=== PATIENT | female | born 1990 | race African-American/Black ===

== ENCOUNTER 2020-09-30 13:14 | Emergency (ER) | payer OTHER ==
[~2020-09-30] VITALS: Ht 162.6 cm; Wt 102.1 kg
[2020-09-30] MEDS ORDERED: DIAZEPAM 10 MG10 M1 PO (13:34)
[2020-09-30] MEDS ORDERED: TOPROL XL100 MG PO (13:34)
[2020-09-30] MEDS ORDERED: HYDROCHLOROTHIA25 M2 PO (13:34)
[2020-09-30] MEDS ORDERED: FUROSEMIDE 20 M20 MG PO (13:35)
[2020-09-30] MEDS ORDERED: XANAX XR2 MG PO (13:35)
[2020-09-30] MEDS ORDERED: GEODON40 MG PO (13:35)
[2020-09-30] MEDS ORDERED: PROZAC40 MG PO (13:35)
[2020-09-30] MEDS ORDERED: VYVANSE50 MG PO (13:37)
[2020-09-30] MEDS ORDERED: KEFLEX500 M1 PO (13:41)
[2020-09-30] MEDS ORDERED: APAP W/CODEINE1 TA2 PO (13:41)
[2020-09-30] MEDS ORDERED: LIDOCAINE VISC100 ML TOP (13:41)
[2020-09-30 13:52] VITALS: BP 108/81
== END 2020-09-30 13:53 | disposition home or self-care (01) ==
LOC: M.ERS 13:14
DX: M79.675 Pain in left toe(s) (principal); I10 Essential (primary) hypertension; Z88.5 Allergy status to narcotic agent; Z88.8 Allergy status to other drugs, medicaments and biological substances

== ENCOUNTER 2020-11-20 17:30 | Emergency (ER) | payer OTHER, MEDICAID ==
[~2020-11-20] VITALS: Ht 162.6 cm; Wt 99.8 kg
[~2020-11-20 17:30] MED LIST: APAP W/CODEINE1 TA2 PO; DIAZEPAM 10 MG10 M1 PO; FUROSEMIDE 20 M20 MG PO; GEODON40 MG PO; HYDROCHLOROTHIA25 M2 PO; KEFLEX500 M1 PO; LIDOCAINE VISC100 ML TOP; PROZAC40 MG PO; TOPROL XL100 MG PO; VYVANSE50 MG PO; XANAX XR2 MG PO
[2020-11-20] MEDS ORDERED: VALSARTAN-HCTZ1 EAC4 PO (17:40)
[2020-11-20 18:13] LABS: ABSOLUTE BASOPHILS 0.1 thou/uL (0.0-0.2); ABSOLUTE EOSINOPHILS 0.3 thou/uL (0.0-0.7); ABSOLUTE MONOCYTES 0.7 thou/uL (0.0-1.2); BASOPHILS 1.2 %; HEMATOCRIT 41.9 % (37.0-47.0); HEMOGLOBIN 14.1 gm/dL (12.0-15.0); LYMPHOCYTES 36.7 %; MCHC 33.7 g/dL (28.0-37.0); MCV 89.1 fL (80.0-100.0); MONOCYTES 8.5 %; MPV 7.3 fl. (7.2-11.1); NUCLEATED RBCS 0 /100WBC; PLATELET COUNT* 250 thou/uL (150-400); POLYS 49.6 %; RDW-CV 13.5 % (10.5-14.5); WBC 8.2 thou/uL (4.0-11.0)
[2020-11-20 18:19] LABS: CALCIUM 9.2 mg/dL (8.5-10.1)
[2020-11-20 18:24] LABS: ALBUMIN 3.2 g/dL (3.4-5.0); TOTAL BILIRUBIN 0.3 mg/dL (<0.1-1.0); TOTAL PROTEIN 6.2 g/dL (6.4-8.2)
[2020-11-20 18:30] LABS: POTASSIUM 2.4 mmol/L (3.5-5.1)
[2020-11-20] MEDS ORDERED: BENTYL 20 MG TA20 M1 PO (20:10)
[2020-11-20] MEDS ORDERED: PHENERGAN 25 MG25 M1 PO (20:10)
[2020-11-20] MEDS ORDERED: AUGMENTIN 875-1 EACH PO (20:10)
[2020-11-20] MEDS ORDERED: APAP W/CODEINE1 TA2 PO (20:17)
[2020-11-20 20:30] VITALS: BP 105/58
== END 2020-11-20 20:31 | disposition home or self-care (01) ==
LOC: M.ERS 17:30
PROVIDERS: Nurse Practitioner Family
DX: K52.9 Noninfective gastroenteritis and colitis, unspecified (principal); N72 Inflammatory disease of cervix uteri; I10 Essential (primary) hypertension; F17.210 Nicotine dependence, cigarettes, uncomplicated; Z88.5 Allergy status to narcotic agent; Z88.8 Allergy status to other drugs, medicaments and biological substances

== ENCOUNTER 2020-12-23 15:52 | Emergency (ER) | payer OTHER, MEDICAID ==
[~2020-12-23] VITALS: Ht 162.6 cm; Wt 99.8 kg
[~2020-12-23 15:52] MED LIST changes: +AUGMENTIN 875-1 EACH PO; +BENTYL 20 MG TA20 M1 PO; +PHENERGAN 25 MG25 M1 PO; +VALSARTAN-HCTZ1 EAC4 PO
[2020-12-23 16:03] VITALS: BP 143/88
[2020-12-23 16:24] LABS: URINE BILIRUBIN NEGATIVE (Negative); URINE BLOOD 2+ (Negative); URINE CLARITY CLEAR; URINE COLOR YELLOW; URINE GLUCOSE-RANDOM NEGATIVE (Negative); URINE KETONES NEGATIVE (Negative); URINE LEUKOCYTES-REFLEX NEGATIVE (Negative); URINE NITRITE-REFLEX NEGATIVE (Negative); URINE PROTEIN NEGATIVE (Negative); URINE SPECIFIC GRAVITY >= 1.030 (1.005-1.030); URINE UROBILINOGEN 0.2 E.U./dl (0.2-1.0)
[2020-12-23] MEDS ORDERED: ZOFRAN ODT4 MG SUBLING (16:30)
[2020-12-23] MEDS ORDERED: PERCOCET 5-3251 EACH PO (16:30)
[2020-12-23] MEDS ORDERED: CIPROFLOXACIN500 M1 PO (16:30)
[2020-12-23 17:00] LABS: SQUAMOUS >10 Many /LPF (0-3); URINE WBC-REFLEX 0-5 Rare /HPF (0-5)
[2020-12-23 17:01] LABS: CASTS None Seen /LPF (None Seen); CRYSTALS None Seen /LPF (None Seen); MUCUS >6 Heavy strn/LPF (None Seen); URINE RBC 0-2 Rare /HPF (0-2)
== END 2020-12-23 17:03 | disposition home or self-care (01) ==
LOC: M.ERS 15:52
PROVIDERS: Family Medicine
DX: N39.0 Urinary tract infection, site not specified (principal); I10 Essential (primary) hypertension; Z79.899 Other long term (current) drug therapy; Z88.5 Allergy status to narcotic agent; Z88.8 Allergy status to other drugs, medicaments and biological substances

== ENCOUNTER → 2021-02-15 | Outpatient (CLI) | payer OTHER, MEDICAID ==
[~2021-02-15] MED LIST changes: +CIPROFLOXACIN500 M1 PO; +NYSTATIN 100,0015 G1 TOP; +PERCOCET 5-3251 EACH PO; +ZOFRAN ODT4 MG SUBLING
--- NOTE | 2021-02-16 10:31 | EKG ---
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
== END ==
LOC: M.ULTRA 14:48
DX: Z01.818 Encounter for other preprocedural examination (principal); I49.9 Cardiac arrhythmia, unspecified

== ENCOUNTER 2021-03-04 14:06 | Emergency (ER) | payer OTHER, MEDICAID ==
[~2021-03-04] VITALS: Ht 162.6 cm; Wt 97.5 kg
[~2021-03-04 14:06] MED LIST changes: -NYSTATIN 100,0015 G1 TOP
[2021-03-04 15:17] LABS: ABSOLUTE BASOPHILS 0.1 thou/uL (0.0-0.2); ABSOLUTE EOSINOPHILS 0.1 thou/uL (0.0-0.7); ABSOLUTE LYMPHOCYTES 2.2 thou/uL (0.8-5.3); ABSOLUTE MONOCYTES 0.5 thou/uL (0.0-1.2); ABSOLUTE NEUTROPHILS 4.3 thou/uL (1.6-8.1); BASOPHILS 1.4 %; HEMATOCRIT 42.5 % (37.0-47.0); HEMOGLOBIN 14.3 gm/dL (12.0-15.0); LYMPHOCYTES 30.6 %; MCHC 33.7 g/dL (28.0-37.0); MCV 88.9 fL (80.0-100.0); MONOCYTES 7.3 %; MPV 7.7 fl. (7.2-11.1); NUCLEATED RBCS 0 /100WBC; PLATELET COUNT* 227 thou/uL (150-400); POLYS 59.7 %; RBC 4.78 mil/uL (4.20-5.00); RDW-CV 14.3 % (10.5-14.5); WBC 7.3 thou/uL (4.0-11.0)
[2021-03-04 15:22] LABS: CALCIUM 9.2 mg/dL (8.5-10.1)
[2021-03-04 15:27] LABS: TOTAL BILIRUBIN 0.6 mg/dL (<0.1-1.0); TOTAL PROTEIN 7.7 g/dL (6.4-8.2)
[2021-03-04] MEDS ORDERED: NYSTATIN 100,0015 G1 TOP (15:39)
[2021-03-04 16:21] LABS: URINE BILIRUBIN NEGATIVE (Negative); URINE BLOOD 1+ (Negative); URINE CLARITY CLEAR; URINE COLOR YELLOW; URINE GLUCOSE-RANDOM NEGATIVE (Negative); URINE KETONES NEGATIVE (Negative); URINE LEUKOCYTES-REFLEX TRACE (Negative); URINE NITRITE-REFLEX NEGATIVE (Negative); URINE PROTEIN NEGATIVE (Negative); URINE SPECIFIC GRAVITY 1.015 (1.005-1.030); URINE UROBILINOGEN 0.2 E.U./dl (0.2-1.0)
[2021-03-04 16:27] LABS: BACTERIA-REFLEX >30 Many /HPF (None Seen); CASTS None Seen /LPF (None Seen); CRYSTALS None Seen /LPF (None Seen); MUCUS 0-3 Light strn/LPF (None Seen); SQUAMOUS >10 Many /LPF (0-3); URINE RBC 0-2 Rare /HPF (0-2); URINE WBC-REFLEX 0-5 Rare /HPF (0-5)
[2021-03-04] MEDS ORDERED: APAP W/CODEINE1 TA2 PO ×2 (16:40→16:42)
[2021-03-04] MEDS ORDERED: PHENERGAN 25 MG25 M1 PO ×2 (16:40→16:42)
[2021-03-04 16:59] VITALS: BP 147/74
--- NOTE | 2021-03-04 17:14 | EKG ---
[place] [address] ELECTROCARDIOGRAM REPORT Name: CAT TARIQ Room: 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1990 Requested By: Marcela Toledo Order Number: [id number] MD: Donny Judge Measurements Intervals [place] Rate: 70 P: -10 PA: 132 QRS: 27 QRSD: 92 T: -11 QT: 444 QTc: 480 Interpretive Statements Sinus rhythm Low voltage, precordial leads Anteroseptal infarct, old Nonspecific ST segment and T wave changes, consider ischemia compared to ECG 02/15/2021 15:50:24 Low QRS voltage now present Myocardial infarct finding now present Electronically Signed On 03-04-2021 17:14:18 CDT by Donny Judge [email or web address] <ELECTRONICALLY SIGNED> By: Donny Judge MD, [facility] 03/04/21 1714 1513 1513 Donny Judge MD, [facility] /EPI
== END 2021-03-04 17:00 | disposition home or self-care (01) ==
LOC: M.ERS 14:06
PROVIDERS: Nurse Practitioner Family
DX: B37.2 Candidiasis of skin and nail (principal); K52.9 Noninfective gastroenteritis and colitis, unspecified; E87.6 Hypokalemia; I10 Essential (primary) hypertension; Z88.5 Allergy status to narcotic agent; Z88.8 Allergy status to other drugs, medicaments and biological substances

== ENCOUNTER → 2021-03-05 | Outpatient (CLI) | payer OTHER, MEDICAID ==
[~2021-03-05] MED LIST changes: +NYSTATIN 100,0015 G1 TOP
[2021-03-05 16:29] LABS: URINE BILIRUBIN NEGATIVE (Negative); URINE BLOOD TRACE (Negative); URINE CLARITY SL CLOUDY; URINE COLOR YELLOW; URINE GLUCOSE-RANDOM NEGATIVE (Negative); URINE KETONES NEGATIVE (Negative); URINE LEUKOCYTES-REFLEX 1+ (Negative); URINE NITRITE-REFLEX NEGATIVE (Negative); URINE PROTEIN NEGATIVE (Negative); URINE SPECIFIC GRAVITY >= 1.030 (1.005-1.030); URINE UROBILINOGEN 0.2 E.U./dl (0.2-1.0)
[2021-03-05 16:36] LABS: SQUAMOUS >10 Many /LPF (0-3)
[2021-03-05 16:37] LABS: CASTS None Seen /LPF (None Seen); CRYSTALS None Seen /LPF (None Seen); MUCUS None Seen strn/LPF (None Seen); URINE RBC 0-2 Rare /HPF (0-2); URINE WBC-REFLEX 6-15 Few /HPF (0-5)
[2021-03-05 16:53] LABS: ABSOLUTE BASOPHILS 0.1 thou/uL (0.0-0.2); ABSOLUTE EOSINOPHILS 0.2 thou/uL (0.0-0.7); ABSOLUTE LYMPHOCYTES 2.9 thou/uL (0.8-5.3); ABSOLUTE MONOCYTES 0.4 thou/uL (0.0-1.2); ABSOLUTE NEUTROPHILS 3.2 thou/uL (1.6-8.1); BASOPHILS 0.9 %; HEMATOCRIT 42.2 % (37.0-47.0); HEMOGLOBIN 14.1 gm/dL (12.0-15.0); LYMPHOCYTES 42.3 %; MCHC 33.3 g/dL (28.0-37.0); MONOCYTES 6.2 %; MPV 7.4 fl. (7.2-11.1); NUCLEATED RBCS 0 /100WBC; PLATELET COUNT* 233 thou/uL (150-400); POLYS 47.6 %; RBC 4.69 mil/uL (4.20-5.00); RDW-CV 14.4 % (10.5-14.5); WBC 6.8 thou/uL (4.0-11.0)
[2021-03-05 17:05] LABS: CALCIUM 9.8 mg/dL (8.5-10.1); CREATININE 1.2 mg/dL (0.6-1.3); POTASSIUM 3.1 mmol/L (3.5-5.1)
[2021-03-05 17:09] LABS: APTT 25.1 Seconds (25.0-31.3); PROTIME 10.6 Seconds (9.20-11.50)
[2021-03-06 02:06] LABS: HIV-1/HIV-2 ANTIBODY Non Reactive (Non Reactive)
--- NOTE | 2021-03-06 09:27 | EKG ---
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1990 Requested By: Physician staff Order Number: [id number] Reading MD: Charli Grace Measurements Intervals [place] Rate: 73 P: 2 IN: 120 QRS: 28 QRSD: 87 T: -14 QT: 430 QTc: 474 Interpretive Statements Sinus rhythm Borderline T abnormalities, inferior leads Compared to ECG 03/04/2021 15:13:23 Myocardial infarct finding no longer present Possible ischemia no longer present T-wave abnormality still present Electronically Signed On 03-06-2021 9:27:33 CDT by Charli Grace [email or web address] <ELECTRONICALLY SIGNED> By: Tommy Grace MD, [facility] 03/06/21 0927 1629 1629 Tommy Grace MD, [facility] /EPI
== END ==
LOC: M.LAB 15:35
DX: Z01.812 Encounter for preprocedural laboratory examination (principal); Z01.810 Encounter for preprocedural cardiovascular examination

== ENCOUNTER → 2021-03-13 | Outpatient (CLI) | payer OTHER, MEDICAID ==
[2021-03-13 11:29] LABS: URINE BILIRUBIN NEGATIVE (Negative); URINE BLOOD TRACE (Negative); URINE CLARITY CLEAR; URINE COLOR YELLOW; URINE GLUCOSE-RANDOM NEGATIVE (Negative); URINE KETONES NEGATIVE (Negative); URINE LEUKOCYTES-REFLEX NEGATIVE (Negative); URINE NITRITE-REFLEX NEGATIVE (Negative); URINE PROTEIN NEGATIVE (Negative); URINE SPECIFIC GRAVITY 1.025 (1.005-1.030); URINE UROBILINOGEN 0.2 E.U./dl (0.2-1.0)
[2021-03-14 17:07] LABS: HIV-1/HIV-2 ANTIBODY Non Reactive (Non Reactive)
== END ==
LOC: M.LAB 10:57
DX: Z01.818 Encounter for other preprocedural examination (principal)

== ENCOUNTER → 2021-04-23 | Outpatient (CLI) | payer OTHER, MEDICAID ==
[2021-04-23 12:39] LABS: ABSOLUTE BASOPHILS 0.1 thou/uL (0.0-0.2); ABSOLUTE EOSINOPHILS 0.1 thou/uL (0.0-0.7); ABSOLUTE MONOCYTES 0.6 thou/uL (0.0-1.2); ABSOLUTE NEUTROPHILS 5.8 thou/uL (1.6-8.1); BASOPHILS 1.1 %; EOSINOPHILS 1.5 %; HEMATOCRIT 41.3 % (37.0-47.0); LYMPHOCYTES 30.9 %; MCH 30.2 pg (26.0-34.0); MCHC 33.8 g/dL (28.0-37.0); MCV 89.4 fL (80.0-100.0); MONOCYTES 6.7 %; MPV 7.1 fl. (7.2-11.1); NUCLEATED RBCS 0 /100WBC; PLATELET COUNT* 292 thou/uL (150-400); POLYS 59.8 %; RBC 4.61 mil/uL (4.20-5.00); RDW-CV 13.7 % (10.5-14.5); WBC 9.7 thou/uL (4.0-11.0)
[2021-04-23 12:42] LABS: URINE BILIRUBIN NEGATIVE (Negative); URINE BLOOD TRACE (Negative); URINE CLARITY CLEAR; URINE COLOR YELLOW; URINE GLUCOSE-RANDOM NEGATIVE (Negative); URINE KETONES NEGATIVE (Negative); URINE LEUKOCYTES NEGATIVE (Negative); URINE NITRITE NEGATIVE (Negative); URINE PROTEIN NEGATIVE (Negative); URINE SPECIFIC GRAVITY >= 1.030 (1.005-1.030); URINE UROBILINOGEN 0.2 E.U./dl (0.2-1.0)
[2021-04-23 12:46] LABS: CALCIUM 8.9 mg/dL (8.5-10.1)
[2021-04-23 12:50] LABS: APTT 26.8 Seconds (25.0-31.3); PROTIME 10.3 Seconds (9.20-11.50)
--- NOTE | 2021-04-23 17:30 | EKG ---
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1990 Requested By: Physician staff Order Number: [id number] Reading MD: Donny Judge Measurements Intervals [place] Rate: 63 P: -15 [place]: 140 QRS: 44 QRSD: 93 T: 12 QT: 466 QTc: 478 Interpretive Statements Sinus rhythm Borderline prolonged QT interval Nonspecific T wave flattening Compared to ECG 03/05/2021 16:29:41 No significant changes noted Electronically Signed On 04-23-2021 17:30:12 CDT by Donny Judge [email or web address] <ELECTRONICALLY SIGNED> By: Donny Judge MD, FACC 04/23/21 1730 1255 1255 Donny Judge MD, [facility] /EPI
[2021-04-24 18:06] LABS: HIV-1/HIV-2 ANTIBODY Non Reactive (Non Reactive)
== END ==
LOC: M.LAB 11:49
DX: Z01.818 Encounter for other preprocedural examination (principal); Z41.1 Encounter for cosmetic surgery

== ENCOUNTER → 2021-05-14 | Outpatient (CLI) | payer OTHER, MEDICAID | LOC: M.RAD 16:34 | DX: Z01.818 Encounter for other preprocedural examination (principal); M54.2 Cervicalgia ==

== ENCOUNTER → 2021-06-04 | Outpatient (CLI) | payer OTHER, MEDICAID ==
[~2021-06-04] MED LIST changes: +MINIPRESS2 MG PO; +OXTELLAR XR300 MG PO; +POTASSIUM20 PO; +TOPAMAX100 MG PO; +VYVANSE60 MG PO
[2021-06-04 09:33] LABS: HEMOGLOBIN 13.4 gm/dL (12.0-15.0); MCH 30.5 pg (26.0-34.0); MCHC 34.3 g/dL (28.0-37.0); RBC 4.38 mil/uL (4.20-5.00); RDW-CV 13.3 % (10.5-14.5)
[2021-06-04 09:40] LABS: CALCIUM 8.5 mg/dL (8.5-10.1); CREATININE 1.1 mg/dL (0.6-1.3); POTASSIUM 3.2 mmol/L (3.5-5.1)
[2021-06-04 09:43] LABS: URINE BILIRUBIN NEGATIVE (Negative); URINE BLOOD 1+ (Negative); URINE CLARITY CLEAR; URINE COLOR YELLOW; URINE GLUCOSE-RANDOM NEGATIVE (Negative); URINE KETONES NEGATIVE (Negative); URINE LEUKOCYTES NEGATIVE (Negative); URINE NITRITE NEGATIVE (Negative); URINE PROTEIN NEGATIVE (Negative); URINE SPECIFIC GRAVITY >= 1.030 (1.005-1.030); URINE UROBILINOGEN 0.2 E.U./dl (0.2-1.0)
[2021-06-04 09:51] LABS: BACTERIA 1-9 Few /HPF (None Seen); CASTS None Seen /LPF (None Seen); CRYSTALS None Seen /LPF (None Seen); SQUAMOUS 0-3 Few /LPF (0-3); URINE RBC 0-2 Rare /HPF (0-2); URINE WBC 0-5 Rare /HPF (0-5)
[2021-06-04 10:05] LABS: APTT 26.8 Seconds (25.0-31.3); PROTIME 10.3 Seconds (9.20-11.50)
[2021-06-05 02:06] LABS: HIV-1/HIV-2 ANTIBODY Non Reactive (Non Reactive)
== END ==
LOC: M.LAB 09:08
PROVIDERS: ATTEND Internal Medicine
DX: Z01.812 Encounter for preprocedural laboratory examination (principal)

== ENCOUNTER 2021-11-05 15:44 | Emergency (ER) | payer OTHER, MEDICAID ==
[~2021-11-05] VITALS: Ht 162.6 cm; Wt 95.3 kg
[2021-11-05 18:50] VITALS: BP 131/78
== END 2021-11-05 18:50 | disposition left against medical advice (07) ==
LOC: M.ERS 15:44
DX: M62.81 Muscle weakness (generalized) (principal); Z53.21 Procedure and treatment not carried out due to patient leaving prior to being seen by health care provider